=== PATIENT | female | born 1945 | race Caucasian/White ===

== ENCOUNTER 2016-11-07 10:26 | Inpatient (IN) | payer MEDICARE ==
[~2016-11-07] VITALS: Ht 160 cm; Wt 67.1 kg
--- NOTE | ~2016-11-07 | CON ---
[place], [place] REPORT OF CONSULTATION NAME: [id number] UNIT #: [id number] ROOM: 515 DOCTOR: FRANCE THOMPSON MDZEINA BIRTHDATE: [birth year] DOS: 11/08/2016 PULMONARY CONSULTATION AND EVALUATION MANAGEMENT REASON FOR CONSULTATION: To assess the patient for ongoing acute respiratory symptoms and exacerbation of COPD. HISTORY OF PRESENT ILLNESS: This is a 71-year-old female who has been admitted to the hospital under care of the hospitalist services on 11/07/2016. The patient was noted with symptoms of getting progressive shortness breath, which has been occurring for the patient since 10/18/2016. She also developed severe progressive cough which were described to be quite harsh that remained nonproductive. Because of the cough, she has been complaining of pain under the ribs. The pain worsens with the deep cough. The patient was also noted symptoms of wheezing. She was also noted symptoms of generalized weakness and fatigue. The patient has been [facility] and started on Augmentin and azithromycin as corticosteroids. She has taken the medication, but resulted in no improvement in the symptoms. The patient denies any symptoms of hemoptysis. REVIEW OF SYSTEMS: CONSTITUTIONAL: Denies any symptoms of fatigue and tiredness. There were no symptoms of fever or chills. Generalized weakness and fatigue were noted with decrease in appetite. EYES: Denies any burning, redness, or tenderness. EARS, NOSE, AND THROAT SYMPTOM: No sore throat, hoarseness, or otalgia. CARDIOVASCULAR SYSTEM: Denies anginal pain, edema or pain of the lower extremities. GASTROINTESTINAL SYMPTOMS: No dysphagia, nausea, vomiting, diarrhea, abdominal pain, hematemesis, melena, or gastroesophageal reflux symptoms. GENITOURINARY: No denies dysuria, suprapubic pain, or hematuria. MUSCULOSKELETAL SYMPTOMS: No acute joint pain, redness, or tenderness. SKIN: No lesions or rashes. CENTRAL NERVOUS SYSTEM: No dizziness, headache, diplopia or seizures. Remaining systems were reviewed with the patient, they were noted all negative. PAST MEDICAL HISTORY: None known. SOCIAL HISTORY: The patient is . She lives at home. She has 1 child. She has been noted history of tobacco use up to a pack of cigarettes per day since younger age, which were discontinued in the year 2008. Denies occupation related pulmonary exposure. Denies history of alcohol or illicit drug use. PAST SURGICAL HISTORY: Noted with no known past surgeries. FAMILY HISTORY: Mother at the age of 8282 years old from complications of dementia. Father for this patient at the age of 8080 years old from parkinsonism. HOME MEDICATIONS: Were none except the current described Augmentin and [place], [place] REPORT OF CONSULTATION NAME: MARY TRUONG UNIT #: [id number] ROOM: [facility] DOCTOR: ZEINA OCONNELL MD BIRTHDATE: [birth year] prednisone recently prescribed. DRUG ALLERGIES: NOTED FOR ALLERGY TO THE CAFFEINE CAUSING SHORTNESS OF BREATH AND SHAKINESS. PHYSICAL EXAMINATION: GENERAL: This is a 71-year-old white female who has been currently noted sitting on the bed for the patient without any distress, noted nonproductive cough upon assessment. At the time of the assessment, height of 5 feet 3 inches, weight of 148 pounds, BMI 26.2. VITAL SIGNS: Showed normal temperature, respiratory rate 25-18, heart rate of 109-144. On admission, blood pressure 189/89-133/86. The pulse oxygen saturation of the patient noted on 2 L nasal cannula was 94% saturation. HEENT: Head was atraumatic. Eyes nonicterus. NECK: Supple. CARDIOVASCULAR SYSTEM: S1, S2 audible. LUNGS: Examination of the lungs for this patient were noted without any crackles. Decreased breaths are noted with expiratory wheezing. ABDOMEN: Soft, nontender. Bowel sounds present. EXTREMITIES: Show no edema, clubbing or cyanosis. CENTRAL NERVOUS SYSTEM: Cranial nerves 2-12 intact. No focal deficit. MUSCULOSKELETAL SYMPTOMS: No acute deformities. SKIN: No lesions or rashes. LABORATORY DATA: CBC on admission 11/07/2016, WBC count 21.3. Remaining CBC were normal. Lactic acid 2.7 with followup lactic acid progressively decreased and noted normal for the patient as 1.5 on 11/07/2016. CMP of patient on 11/07/2016, glucose 399, BUN and creatinine were normal. Remaining electrolytes were normal. PT/PTT were normal yesterday. The influenza A and B nasal washing antigens were negative. Serum ketones were noted negative yesterday as well. CBC of the patient that was done this morning, WBC count 14.9, hemoglobin 11.5, hematocrit 37.0, platelet count was normal. PT/PTT repeated again normal. CK-MB and troponin yesterday and this morning was normal. BMP this morning, glucose 277, BUN 11, creatinine was normal. The patient had CT of the chest, which was done in the Emergency Room for this patient yesterday, which was personally reviewed. It does not show any evidence of pulmonary embolism. Granulomas were noted in the right lung with calcification of the hilar lymph nodes. Large area of consolidation with air bronchogram for this patient noted in the left lingula and another patchy infiltration noted in the left upper lobe as well. The lymph nodes were measured as 2.1 x 1.5 cm in size. IMPRESSION: 1. The patient had been e currently admitted to the hospital for acute sepsis, not responding to outpatient treatment, failed treatment with new onset of COPD and bronchial asthma exacerbation. 2. Past history of nicotine dependence, discontinued in 2008. 3. Severe steroid-induced hyperglycemia with strong possibility of new onset of diabetes would be considered as the hemoglobin A1c level was also noted 10.4. 4. Ongoing severe nonproductive cough, not responding to current treatment. The organism for the pneumonia would be considered non-aspiration with [place], [place] REPORT OF CONSULTATION NAME: [facility]: [id number] UNIT #: [id number] ROOM: [facility] DO[facility] [birth year] gram-positive organism and community acquired infection and atypical organisms such as Legionella and others. PLAN OF TREATMENT: The patient will be continued on the bronchodilators at this time. The oxygen supplementation to be continued. The diabetes management has been started by the primary care attending. Hold off use of the corticosteroids at this time for this patient in the management because of severe hyperglycemia. If necessary and the symptoms progresses, certainly steroids need to be added to the treatment. Fiberoptic bronchoscopy was planned to be done in the morning to help secretion clearance from the airways as well as to get more accurate assessment cultures from the respiratory tract for this patient to effectively reduce the antibiotics use since the patient is currently noted on multiple broad spectrum intravenous antibiotics. All other usual treatment, plan of management. Supportive care. Other usual care, plan of management. Monitor culture results of the blood. Thanks for allowing me to participate in the care of this patient. ZEINA HOUGH MD CM:CONSTR:REPORT OF CONSULTATION 1413 11/09/16 0904 interface
--- NOTE | ~2016-11-07 | PR ---
[place], [place] PROGRESS NOTE [id number] UNIT #: [id number] ROOM: [facility] DOCTOR: ZEINA OCONNELL MD BIRTHDATE: [birth year] DOS: 11/10/2016 PULMONARY FOLLOWUP SUBJECTIVE: The patient was seen and examined on 11/10/2016. She has been sitting on the bed at this time, seen on the 5th floor. She has not noted with symptoms of chest pain, abdominal pain. Bronchoscopy done yesterday with marked improvement and solution of the symptoms acute coughing and wheezing has occurred. OBJECTIVE: VITAL SIGNS: Normal temperature, respiratory rate 18, heart rate 114, blood pressure 138/65. Pulse oxygen saturation on room air was 92% saturation. HEENT: Examination shows no acute change. NECK: Supple. CARDIOVASCULAR: S1, S2 audible. LUNGS: For the patient noted without any wheezing or crackles at the present time. Breath sounds noted mildly decreased bilaterally. ABDOMEN: Soft, nontender. LABORATORY DATA: Preliminary culture of the bronchial washing was noted as light growth of yeast. IMPRESSION: 1. The patient with marked improvement and resolution of the acute respiratory symptom noted with coughing and wheezing with exacerbation of COPD. 2. History of past nicotine abuse. 3. New onset of type 2 diabetes mellitus. PLAN OF TREATMENT: The patient could be discharged home from the pulmonary standpoint when desired. No other change in treatment at this time will be needed. Usual care. Supportive therapy, plan of management and other care, usual therapies. [place], [place] PROGRESS NOTE NAME: MARY TRUONG UNIT #: [id number] ROOM: [facility] DOCTOR: ZEINA OCONNELL MD BIRTHDATE: [birth year] ZEINA HOUGH MD CM:ONDINA [id number] ZEINA THOMPSON MD 11/11/16 0139 interface
--- NOTE | ~2016-11-07 | PROC NOTE ---
[place], [place] PROCEDURE NOTE NAME: [id number] UNIT #: [id number] ROOM: [facility] DOCTOR: FRANCE THOMPSON MD,ZEINA BIRTHDATE: [birth year] DOS: 11/09/2016 PROCEDURE: Bronchoscopy. CHIEF COMPLAINT: Severe nonproductive cough without any sputum expectoration with ongoing exacerbation of COPD as well. POSTOPERATIVE DIAGNOSES: Removal of large multiple plugs of mucus from endobronchial tree bilaterally. Evidence of acute tracheobronchitis. PROCEDURE DESCRIPTION: Informed consent obtained from the patient. She was brought to the OR and placed in the supine position. Conscious sedation administered by the Anesthesia Department. After achieving proper sedation, airway introduced into the mouth. Bronchoscope advanced through the airway into laryngeal area. The epiglottis and vocal cords were seen. The vocal cord was noted to be moving symmetrically with movements. Bronchoscope advanced to the vocal cord and tracheal lumen. Tracheal lumen shows moderate amount of thick mucus secretion, which was suctioned out to the jovanni level. Right upper, right middle, right lower, left upper, lingular lower lobe bronchi were all examined. Moderate to large thick plugs of the mucus were present in the endobronchial tree bilaterally suctioned out with the help of normal saline wash. Finding of acute tracheobronchitis was also noted. There were no endobronchial obstructive lesions. Procedure well tolerated by the patient without any complications. Postoperative findings will be discussed with the patient once she recovers the effects of acute sedation. No change in the treatment at this time will be needed for the patient after bronchoscopy. Other treatment previously ongoing will be continued. ZEINA HOUGH MD CM:PROCNOTE:PROCEDURE NOTE [phone] ZEINA THOMPSON MD
--- NOTE | ~2016-11-07 | PR ---
[place], [place] PROGRESS NOTE NAME: [id number] UNIT #: [id number] ROOM: 515 DOCTOR: FRANCE THOMPSON MD,ZEINA BIRTHDATE: [birth year] DOS: 11/09/2016 PULMONARY PROGRESS NOTE SUBJECTIVE: She has been noted with significant severe cough with wheezing, shortness of breath with mild exertion. Denies symptoms of chest pain. She is n.p.o. past midnight, bronchoscopy planned for today. OBJECTIVE: VITAL SIGNS: Shows a normal temperature, respiratory rate 20, heart rate of 106, blood pressure 142/60. Intake for this patient is 2400 mL, output 3000 mL, negative balance 1.425 liters. Pulse oxygen saturation on 3 L canula 92% saturation. HEENT: Examination shows head was atraumatic. Eyes nonicterus. NECK: Supple. CARDIOVASCULAR SYSTEM: S1, S2 audible. LUNGS: For this patient noted without any acute crackles. Moderate decreased breath sounds for the patient noted with diffuse expiratory wheezing. ABDOMEN: Soft, nontender. LABORATORY DATA: BMP for this patient, glucose noted down to 192. Potassium mildly decreased 3.2. CBC this morning noted WBC count 16.6, remaining CBC was normal. IMPRESSION: The patient with ongoing acute exacerbation of chronic obstructive pulmonary disease, acute tracheobronchitis, history of nicotine abuse, leukocytosis, and new onset of type 2 diabetes mellitus. PLAN OF TREATMENT: Proceed with bronchoscopy as planned with further changes to be done for this patient if necessary after the bronchoscopy. ZEINA HOUGH MD CM:PNTRANS [id number] ZEINA THOMPSON MD 12/13/16 1428 interface
[~2016-11-07 10:26] MED LIST: ACYCLOVIR800 MG PO; HYDROCODONE BIT1 T11 PO; PREDNISONE20 M1 PO
[2016-11-07 10:50] VITALS: BP 189/89
[2016-11-07 11:34] LABS: BASO % 0.1 % (0.0-1.0); EOS # 0.1 10*3/uL (0.0-0.4); EOS % 0.4 % (1.0-4.0); HEMATOCRIT 42.8 % (37.0-47.0); HEMOGLOBIN 13.6 g/dl (12.0-16.0); IG # 0.1 10*3/uL (0.0-0.1); LYMPH % 18.5 % (27.0-41.0); MEAN CELL VOLUME 91.8 fl (81.0-99.0); MEAN CORPUSCULAR HGB 29.2 pg (27.0-31.0); MEAN CORPUSCULAR HGB CONC 31.8 g/dl (33.0-37.0); MEAN PLATELET VOLUME 12.9 fl (9.6-12.3); MONO # 1.4 10*3/uL (0.1-1.0); MONO % 6.5 % (3.0-9.0); NEUT # 15.8 10*3/uL (2.3-7.9); PLATELET COUNT AUTOMATED 348 10*3/uL (130-400); RED BLOOD COUNT 4.66 10*6/uL (4.10-5.10); RED CELL DISTRI WIDTH 13.8 % (0-14.5); WHITE BLOOD COUNT 21.3 10*3/uL (4.8-10.8)
[2016-11-07 11:52] LABS: ALBUMIN 3.2 gm/dl (3.1-4.5); ALKALINE PHOSPHATASE 65 U/L (45-117); BILIRUBIN, TOTAL 0.4 mg/dl (0.2-1.0); BUN 18 mg/dl (7-24); CARBON DIOXIDE 29 mmol/L (21-32); CHLORIDE 99 mmol/L (98-107); EST GLOM FILT AFRICAN AMERICAN > 60 ml/min; GLUCOSE 399 mg/dL (65-99); SGOT/AST 11 IU/L (3-35); SGPT/ALT 44 U/L (12-78); SODIUM 137 mmol/L (136-145); TOTAL PROTEIN 8.1 gm/dL (6.4-8.2); TROPONIN I < 0.015 ng/ml (<0.5)
[2016-11-07 11:53] LABS: PROTHROMBIN TIME 10.5 SECONDS (9.0-12.4)
[2016-11-07 12:27] VITALS: BP 150/71
[2016-11-07 13:29] LABS: LA>2 REFLEX 2 HR DRAW NOW
[2016-11-07 13:30] VITALS: BP 160/60
[2016-11-07 14:02] LABS: LA>2 RFLX FOLLOW UP AT 2 HRS 3.6 mmol/L (0.4-2.0)
[2016-11-07 14:36] VITALS: BP 149/70
[2016-11-07 15:38] LABS: LA>2 REFLEX 4 HR DRAW NOW
[2016-11-07 17:50] VITALS: BP 153/63
[2016-11-07 20:00] VITALS: BP 174/70
[2016-11-07 23:42] LABS: BUN 13 mg/dl (7-24); CARBON DIOXIDE 25 mmol/L (21-32); CHLORIDE 104 mmol/L (98-107); EST GLOM FILT AFRICAN AMERICAN > 60 ml/min; GLUCOSE 467 mg/dL (65-99); POTASSIUM 4.3 mmol/L (3.5-5.1); SODIUM 142 mmol/L (136-145)
[2016-11-07 23:59] LABS: ABG BASE EXCESS 0.3 mmol/L (-2.0-2.0); ABG CO2 CONTENT 25.3 mmol/L (23-27); ABG HCO3 24.1 mmol/l (22-26); ABG TEMPERATURE 98.4 F (98.0-99.0); ARTERIAL BLOOD GAS PH 7.421 (7.35-7.45); ARTERIAL BLOOD GAS PO2 72.8 mmHg (80-90)
[2016-11-08] VITALS: BP 137/62
[2016-11-08 00:16] LABS: CKMB 1.1 ng/ml (0.5-3.6); CPK 60 U/L (26-192)
[2016-11-08 00:17] LABS: TROPONIN I < 0.015 ng/ml (<0.5)
[2016-11-08 06:12] LABS: BASO % 0.1 % (0.0-1.0); IG # 0.1 10*3/uL (0.0-0.1); LYMPH # 1.7 10*3/uL (1.3-4.4); LYMPH % 11.2 % (27.0-41.0); MEAN CELL VOLUME 93.2 fl (81.0-99.0); MEAN CORPUSCULAR HGB CONC 31.1 g/dl (33.0-37.0); MEAN PLATELET VOLUME 12.7 fl (9.6-12.3); MONO # 0.7 10*3/uL (0.1-1.0); MONO % 4.8 % (3.0-9.0); NEUT # 12.4 10*3/uL (2.3-7.9); NEUT % 83.4 % (47.0-73.0); PLATELET COUNT AUTOMATED 279 10*3/uL (130-400); RED BLOOD COUNT 3.97 10*6/uL (4.10-5.10); RED CELL DISTRI WIDTH 13.8 % (0-14.5); WHITE BLOOD COUNT 14.9 10*3/uL (4.8-10.8)
[2016-11-08 06:29] LABS: HEMOGLOBIN A1c 10.4 % (4.8-5.6)
[2016-11-08 06:38] LABS: CKMB 0.8 ng/ml (0.5-3.6); CPK 50 U/L (26-192)
[2016-11-08 06:41] LABS: BUN 11 mg/dl (7-24); CARBON DIOXIDE 26 mmol/L (21-32); CHLORIDE 106 mmol/L (98-107); CHOLESTEROL 187 mg/dL (<200); EST GLOM FILT AFRICAN AMERICAN > 60 ml/min; FREE T4 1.37 ng/dl (0.76-1.46); GLUCOSE 277 mg/dL (65-99); HDL CHOLESTEROL 39 mg/dl (40-60); LDL CHOLESTEROL 117 mg/dL (9-159); MAGNESIUM 2.4 mg/dL (1.5-2.1); POTASSIUM 3.9 mmol/L (3.5-5.1); SODIUM 142 mmol/L (136-145); THYROID STIM HORMONE (HS) 0.548 uIU/ml (0.358-4.75); TRIGLYCERIDES 154 mg/dl (<150); VLDL CHOLESTEROL 31 mg/dL (6-40)
[2016-11-08 06:44] LABS: TROPONIN I < 0.015 ng/ml (<0.5)
[2016-11-08 07:04] LABS: FOLIC ACID 7.73 ng/mL (>5.38)
[2016-11-08 07:11] LABS: HEMOGLOBIN 11.5 g/dl (12.0-16.0)
[2016-11-08 07:24] LABS: PROTHROMBIN TIME 10.1 SECONDS (9.0-12.4)
[2016-11-08 08:00] VITALS: BP 133/86
[2016-11-08 12:00] VITALS: BP 138/65
[2016-11-08 12:22] LABS: CPK 61 U/L (26-192); TROPONIN I < 0.015 ng/ml (<0.5)
[2016-11-08 13:25] LABS: BILIRUBIN NEGATIVE (NEGATIVE); BLOOD NEGATIVE (NEGATIVE); CLARITY SL CLOUDY (CLEAR); COLOR YELLOW (YELLOW); GLUCOSE 2+ (NEGATIVE); KETONE 1+ (NEGATIVE); LEUKO ESTERASE NEGATIVE (NEGATIVE); NITRITE NEGATIVE (NEGATIVE); PROTEIN NEGATIVE (NEGATIVE); UROBILINOGEN 0.2 E.U./dl (0.2-1.0)
[2016-11-08 13:50] LABS: BACTERIA TRACE; URINE REFLEX COMMENT YES (NO); WBC 16-20 wbc/hpf (0-5)
[2016-11-08 16:00] VITALS: BP 137/57
[2016-11-08 20:00] VITALS: BP 144/56
[2016-11-09] VITALS (9 sets, daily range): BP systolic 137–167; BP diastolic 53–76
[2016-11-09 06:43] LABS: BASO % 0.2 % (0.0-1.0); EOS # 0.3 10*3/uL (0.0-0.4); EOS % 1.5 % (1.0-4.0); HEMATOCRIT 39.5 % (37.0-47.0); HEMOGLOBIN 12.4 g/dl (12.0-16.0); IG # 0.1 10*3/uL (0.0-0.1); LYMPH # 4.1 10*3/uL (1.3-4.4); LYMPH % 24.5 % (27.0-41.0); MEAN CELL VOLUME 92.1 fl (81.0-99.0); MEAN CORPUSCULAR HGB 28.9 pg (27.0-31.0); MEAN CORPUSCULAR HGB CONC 31.4 g/dl (33.0-37.0); MEAN PLATELET VOLUME 12.4 fl (9.6-12.3); MONO % 5.8 % (3.0-9.0); NEUT # 11.2 10*3/uL (2.3-7.9); NEUT % 67.5 % (47.0-73.0); PLATELET COUNT AUTOMATED 316 10*3/uL (130-400); RED BLOOD COUNT 4.29 10*6/uL (4.10-5.10); WHITE BLOOD COUNT 16.6 10*3/uL (4.8-10.8)
[2016-11-09 07:24] LABS: BUN 7 mg/dl (7-24); CARBON DIOXIDE 30 mmol/L (21-32); CHLORIDE 102 mmol/L (98-107); EST GLOM FILT AFRICAN AMERICAN > 60 ml/min; GLUCOSE 192 mg/dL (65-99); POTASSIUM 3.2 mmol/L (3.5-5.1); SODIUM 141 mmol/L (136-145)
[2016-11-10] VITALS: BP 143/60
[2016-11-10 06:46] LABS: BASO % 0.2 % (0.0-1.0); EOS # 0.4 10*3/uL (0.0-0.4); EOS % 3.6 % (1.0-4.0); HEMOGLOBIN 12.4 g/dl (12.0-16.0); IG # 0.1 10*3/uL (0.0-0.1); LYMPH # 3.1 10*3/uL (1.3-4.4); LYMPH % 27.8 % (27.0-41.0); MEAN CELL VOLUME 91.1 fl (81.0-99.0); MEAN CORPUSCULAR HGB CONC 31.8 g/dl (33.0-37.0); MEAN PLATELET VOLUME 12.4 fl (9.6-12.3); MONO # 0.7 10*3/uL (0.1-1.0); MONO % 6.2 % (3.0-9.0); NEUT # 6.8 10*3/uL (2.3-7.9); NEUT % 61.7 % (47.0-73.0); PLATELET COUNT AUTOMATED 265 10*3/uL (130-400); RED BLOOD COUNT 4.28 10*6/uL (4.10-5.10); RED CELL DISTRI WIDTH 13.9 % (0-14.5); WHITE BLOOD COUNT 11.1 10*3/uL (4.8-10.8)
[2016-11-10 06:58] LABS: BUN 9 mg/dl (7-24); CARBON DIOXIDE 31 mmol/L (21-32); CHLORIDE 103 mmol/L (98-107); EST GLOM FILT AFRICAN AMERICAN > 60 ml/min; GLUCOSE 170 mg/dL (65-99); POTASSIUM 3.7 mmol/L (3.5-5.1); SODIUM 140 mmol/L (136-145)
[2016-11-10 08:00] VITALS: BP 130/60
[2016-11-10] MEDS ORDERED: HUMALOG100 U/ML SC (11:15)
[2016-11-10] MEDS ORDERED: TEST STRIPS1 EACH MC (11:15)
[2016-11-10] MEDS ORDERED: INSULIN SYRING1 EAC1 MC (11:15)
[2016-11-10] MEDS ORDERED: DOXYCYCLINE100 MG PO (11:15)
[2016-11-10] MEDS ORDERED: [UNRECOGNIZED DRUG - OTHER] DEVI (11:15)
[2016-11-10] MEDS ORDERED: LEVEMIR10 ML SC (11:15)
[2016-11-10] MEDS ORDERED: SIMVASTATIN20 MG PO (11:19)
[2016-11-10] MEDS ORDERED: LISINOPRIL5 MG PO (11:19)
[2016-11-10 12:00] VITALS: BP 138/65
[2016-11-10 13:08] LABS: ORGANISM ID Not indicated. (.); SPECIMEN SOURCE Urine (.); STREPTOCOCCUS PNEUMONIAE AG Negative (Negative)
[2016-11-10 15:05] LABS: LEGIONELLA URINARY ANTIGEN Negative (Negative)
[2016-11-10 16:07] LABS: ACID FAST SPEC PROCESSING Concentration (.)
[2016-11-30 10:07] LABS: M AVIUM COMPLEX Positive (.); M TUBERCULOSIS COMPLEX Negative (.)
== END 2016-11-10 15:40 | disposition home or self-care (01) | DRG 871 ==
LOC: ED 10:26 → 5E 14:34 → EDHOLD 14:34 → 5E 16:35 → EDHOLD 16:35 → 5E 17:11
PROVIDERS: Family Medicine; Hospitalist; Internal Medicine; Internal Medicine Critical Care Medicine; Nurse Practitioner Family
PROC: 0BC98ZZ Extirpation of Matter from Lingula Bronchus, Via Natural or Artificial Opening Endoscopic (ICD-10-PCS; principal; 2016-11-09)
PROC: 0BC88ZZ Extirpation of Matter from Left Upper Lobe Bronchus, Via Natural or Artificial Opening Endoscopic (ICD-10-PCS; principal; 2016-11-09)
PROC: 0BC18ZZ Extirpation of Matter from Trachea, Via Natural or Artificial Opening Endoscopic (ICD-10-PCS; principal; 2016-11-09)
PROC: 0BC28ZZ Extirpation of Matter from Carina, Via Natural or Artificial Opening Endoscopic (ICD-10-PCS; principal; 2016-11-09)
PROC: 0BC58ZZ Extirpation of Matter from Right Middle Lobe Bronchus, Via Natural or Artificial Opening Endoscopic (ICD-10-PCS; principal; 2016-11-09)
PROC: 0BC68ZZ Extirpation of Matter from Right Lower Lobe Bronchus, Via Natural or Artificial Opening Endoscopic (ICD-10-PCS; principal; 2016-11-09)
PROC: 0BC48ZZ Extirpation of Matter from Right Upper Lobe Bronchus, Via Natural or Artificial Opening Endoscopic (ICD-10-PCS; principal; 2016-11-09)
DX: A41.9 Sepsis, unspecified organism (principal); J18.9 Pneumonia, unspecified organism; J84.10 Pulmonary fibrosis, unspecified; J44.0 Chronic obstructive pulmonary disease with (acute) lower respiratory infection; J44.1 Chronic obstructive pulmonary disease with (acute) exacerbation; R65.20 Severe sepsis without septic shock; I10 Essential (primary) hypertension; K76.0 Fatty (change of) liver, not elsewhere classified; E11.65 Type 2 diabetes mellitus with hyperglycemia; J20.9 Acute bronchitis, unspecified; T38.0X5A Adverse effect of glucocorticoids and synthetic analogues, initial encounter; Z79.4 Long term (current) use of insulin; Z87.891 Personal history of nicotine dependence; Z81.8 Family history of other mental and behavioral disorders; Z88.8 Allergy status to other drugs, medicaments and biological substances

== ENCOUNTER 2021-12-26 11:36 | Emergency (ER) | payer MEDICARE ==
[~2021-12-26] VITALS: Ht 160 cm; Wt 63.5 kg
[~2021-12-26 11:36] MED LIST changes: +DOXYCYCLINE100 MG PO; +HUMALOG100 U/ML SC; +INSULIN SYRING1 EAC1 MC; +LEVEMIR10 ML SC; +LISINOPRIL5 MG PO; +SIMVASTATIN20 MG PO; +TEST STRIPS1 EACH MC; +[UNRECOGNIZED DRUG - OTHER] DEVI
[2021-12-26] MEDS ORDERED: METFORMIN XR500 MG PO (11:58)
[2021-12-26] MEDS ORDERED: CINNAMON ALPHA1 EACH PO (11:58)
[2021-12-26] MEDS ORDERED: METFORMIN HYD1000 MG PO (11:58)
[2021-12-26] MEDS ORDERED: OCUVITE BLUE L1 EACH PO (11:59)
[2021-12-26] MEDS ORDERED: ASPIRIN CHEWABL81 MG PO (12:00)
[2021-12-26] MEDS ORDERED: AUGMENTIN 875-875 MG PO (14:25)
== END 2021-12-26 15:21 | disposition home or self-care (01) ==
LOC: ED 11:36
DX: S60.222A Contusion of left hand, initial encounter (principal); Z79.899 Other long term (current) drug therapy; W55.03XA Scratched by cat, initial encounter; Y93.89 Activity, other specified; Y92.89 Other specified places as the place of occurrence of the external cause; Y99.8 Other external cause status